=== PATIENT | male | born 1985 | race Caucasian/White ===

== ENCOUNTER 2020-07-18 20:08 | Emergency (ER) | payer OTHER ==
[2020-07-18] MEDS ORDERED: Orphenadrine 100 MG Tab.ER PO STA (21:01)
[2020-07-18] MEDS ORDERED: predniSONE 20 MG Tab PO STA (21:01)
--- NOTE | 2020-07-18 21:16 | EDM.PDOC ---
ED HPI GENERAL MEDICAL PROBLEM - General Chief Complaint: Back Pain or Injury Stated Complaint: LOWER BACK PAIN/RIGHT SIDE Time Seen by Provider: 07/18/20 20:23 Source of Information: Reports: Patient History Limitations: Reports: No Limitations - History of Present Illness INITIAL COMMENTS - FREE TEXT/NARRATIVE: Mr. Caraballo is a very pleasant 34-year-old gentleman who now presents to the ED with progressively worsening lower right back pain radiating down his right lower extremity for the past 2 and half to 3 weeks. He states that he did not suffer any injury to his back, that he simply woke up with it one day. He states that the pain is felt in his lower right back, extending down the lateral aspect of his right buttock, down the lateral aspect of his right thigh, then down his anterior right leg, to his great toe (L4 distribution). He states that he has not identified any modifiers of his symptoms. He denies having any right lower extremity weakness, and he denies any incontinence of bowel or bladder. He states that he has been primarily lying in bed over the past couple of weeks. He states that he was seen by his PCP at the [facility] last week. He states that no tests were done, but that he was prescribed Flexeril and advised to see a chiropractor. He states that he then saw a chiropractor this morning, and that x-rays were done, apparently demonstrating degenerative disc disease. The chiropractor recommended that an MRI be performed, therefore the patient was seen at the [place] walk-in clinic this morning. Again, no tests were p erformed, but the patient was prescribed Welch, and the provider at the walk-in clinic called the [facility] to recommend that an outpatient MRI be scheduled. The patient has not yet heard from the scheduling people. The patient states that neither the Flexeril nor the Welch have helped with his symptoms. He reports that he has been taking aspirin up until 2 days ago. The patient states that he has had similar symptoms in the past, several times over the past few years, however, not this severe. Here in the ED, the patient's initial BP is found to be slightly elevated at 135/99, otherwise, he is hemodynamically stable, afebrile, saturating 99% on room air. Other than his back and right lower extremity pain, the patient denies having a recent fever, chills, sore throat, ear pain, nasal or sinus congestion, cough, dyspnea, chest pain, palpitations, nausea, vomiting, constipation, diarrhea, abdominal pain, urinary symptoms, recent weight gain or weight loss, recent bloody bowel movements or black bowel movements, recent joint aches, headaches, or rashes. The patient's PCP is at the [facility] clinic. He states that he received an influenza vaccine this season. Right Lower Back Pain Score (Numeric/FACES): 9 - Related Data Allergies Allergy/AdvReac Type Severity Reaction Status Date / Time No Known Allergies Allergy Verified 07/18/20 20:22 Home Meds: Home Meds Orphenadrine [Norflex] 1 tab PO Q12H PRN #14 tab.er 07/18/20 [Rx] predniSONE [Prednisone] 1 tab PO QPM #5 tablet 07/18/20 [Rx] Past Medical History - Past Surgical History HEENT Surgical History: Reports: LASIK (bilateral), Oral Surgery (dental extractions) Musculoskeletal Surgical History: Reports: ORIF (left ankle) Social & Family History - Tobacco Use Tobacco Use Status *Q: Never Tobacco User Second Hand Smoke Exposure: No - Alcohol Use Alcohol Use History: Yes Alcohol Use Frequency: Socially - Recreational Drug Use Recreational Drug Use: Yes Drug Use in Last 12 Months: No Recreational Drug Type: Reports: Marijuana/Hashish (last smoked around 2014) - Living Situation & Occupation Living situation: Reports: Single, with Family (Sons) Occupation: Employed ([employer]) ED ROS GENERAL - Review of Systems Review Of Systems: Comprehensive ROS is negative, except as noted in HPI. ED EXAM,LOWER BACK PAIN/INJURY - Physical Exam Exam: See Below Exam Limited By: No Limitations General Appearance: Alert, WD/WN, Mild Distress (appears uncomfortable, stressed) Eye Exam: Bilateral Eye: EOMI, Normal Inspection Ears: Normal External Exam, Hearing Grossly Normal Nose: Normal Inspection Throat/Mouth: Normal Inspection, Normal Lips, Normal Voice, No Airway Compromise Head: Atraumatic, Normocephalic Neck: Normal Inspection, Full Range of Motion Respiratory/Chest: No Respiratory Distress, Lungs Clear, Normal Breath Sounds, No Accessory Muscle Use Cardiovascular: Normal Peripheral Pulses, Regular Rate, Rhythm, No Edema, No Gallop, No JVD, No Murmur, No Rub GI/Abdominal: Normal Bowel Sounds, Soft, Non-Tender, No Organomegaly, No Distention, No Abnormal Bruit, No Mass Back Exam: Other (No visible abnormalities to the patient's lower back, such as swelling, erythema, ecchymosis, or abrasion. No tenderness to the lumbar spinous processes, however, the patient does report some tenderness to palpation over the sacrum. He is more tender over the right SI joint area, with minimal tenderness to the left SI joint area. No tenderness to either buttock. St raight leg raise on the left negative to 90 degrees. Straight leg raise on the right limited to 15 degrees, due to lower back pain, without RLE nuclear symptoms. The patient is able to flex the spine to 10 degrees, and extend the spine to 5 degrees. He is able to tilt the spine to 30 degrees on the left, 5 degrees on the right. He is able to twist the spine to about 5 to 10 degrees bilaterally. Unilateral knee bend is normal bilaterally.) Extremities: Normal Inspection, Non-Tender, No Pedal Edema, Normal Capillary Refill Neurological: Alert, Normal Dorsiflexion, Normal Plantar Flexion, No Motor/Sensory Deficits, Oriented x 3 Psychiatric: Normal Affect Skin Exam: Warm, Dry, Intact, Normal Color, No Rash Course - Vital Signs Last Recorded V/S: Last Vital Signs Temp 36.3 C 07/18/20 20:16 Pulse 95 07/18/20 20:16 Resp 18 07/18/20 20:16 BP 135/99 H 07/18/20 20:16 Pulse Ox 99 07/18/20 20:16 - Orders/Labs/Meds Meds: Medications Discontinued Medications Generic Name Dose Route Start Last Admin Trade Name Alfredoq PRN Reason Stop Dose Admin Orphenadrine Citrate 100 mg 07/18/20 21:01 07/18/20 21:13 Norflex PO 07/18/20 21:02 100 mg ONETIME STA Administration Prednisone 60 mg 07/18/20 21:01 07/18/20 21:13 Prednisone PO 07/18/20 21:02 60 mg ONETIME STA Administration - Re-Assessments/Exams Free Text/Narrative Re-Assessment/Exam: 07/18/20 21:04 As above, the patient developed lower right back pain that radiates down his right lower extremity all the way to his great toe about 2-1/2 to 3 weeks ago. He was [facility] in [place] last week, where he was prescribed Flexeril and recommended to follow-up with a chiropractor. He then saw a chiropractor this morning, where x-rays were performed, with the suggestion of degenerative disc disease. He was then seen at the [place] walk-in clinic this morning, where he was prescribed Welch, and a recommendation was made for an outpatient MRI, which is yet to be scheduled. He states that the Flexeril and Welch have not helped. On examination, all of the patient's pain appears to be due to muscle spasm, with no direct neuropathy, other than the patient reporting radiation of pain down his right lower extremity, which was unable to be reproduced due to muscle spasm in his lower back at even minimal straight leg raise on the right. Because of the patient's young age, I doubt that his symptoms are due to facet arthropathy, rather, it is far more likely that the patient has lumbar disc disease. I explained to the patient that the only way to diagnose that is by MRI, but that, strictly speaking, an MRI is not indicated unless the patient has been symptomatic for 6 weeks, because the vast majority of patients with lumbar disc disease (upwards of 96%) resolve within 6 weeks (an exception to that rule would be if the patient develops motor weakness, as that would indicate cord compression). If the patient is still symptomatic at 6 weeks, an MRI is indicated, and if it confirms lumbar disc disease, then surgery is indicated. The NH, however, may have a different set of guidelines, so he will have to see if they approve an MRI or not. I explained to the patient that there are no medicines or treatments that we can give to encourage a herniated disc to go back in, that all of the treatments that we have are merely to address his symptoms. We discussed the various options, including locally injected steroids, systemic steroids, nonsteroidal anti-inflammatories, muscle relaxants, and physical therapy. None have been shown to be superior to another. For today's purposes, I am recommending that we switch the patient's Flexeril, which is not really a muscle relaxant, to Norflex, and that we start him on prednisone. I explained that he cannot also take an NSAID if he is taking prednisone. I explained that neither of these medicines are going to give him instantaneous relief, but that he should start to have some improvement as early as tomorrow, and should have a noticeable improvement within a couple of days. I also explained that it is very important that the patient stay active, indeed, it is most likely the patient's relative inactivity that has caused his symptoms to get worse over the past couple of weeks. The patient acknowledged that. I recommended that since he already has a note to be off work for the next several days, that he get a membership to the [employer] and begin swimming. If he cannot swim, walking is also good. Departure - Departure Time of Disposition: 21:16 Disposition: Home, Self-Care 01 Condition: Good Clinical Impression: Lumbar radiculopathy, right - Discharge Information *PRESCRIPTION DRUG MONITORING PROGRAM REVIEWED*: Not Applicable *COPY OF PRESCRIPTION DRUG MONITORING REPORT IN PATIENT GEOFF: Not Applicable Prescriptions: Orphenadrine [Norflex] 1 tab PO Q12H PRN #14 tab.er PRN Reason: Muscle Spasm predniSONE [Prednisone] 1 tab PO QPM #5 tablet Instructions: Radicular Pain Referrals: PCP,Not In Area [Primary Care Provider] - Forms: ED Department Discharge Additional Instructions: You were seen in the emergency room for 2 and half weeks of progressively worsening lower right back pain radiating down your right lower extremity. Based on your history and physical examination, your back pain is most likely due to muscle spasms due to irritation of the nerves in your back, most likely due to a herniated intervertebral disc. You have been started on the muscle relaxant Norflex and the steroid prednisone. Prescriptions for both Norflex and prednisone have been sent to the [facility], located at [address] [place] [address]. Take 1 tablet of Norflex every 12 hours, starting tomorrow morning, 07/19/2020, as prescribed. You may continue to take this as long as you are having back pain. Take 1 tablet of prednisone every evening, starting tomorrow evening, 07/19/2020. We recommend that you finish the entire prescription. DO NOT take cyclobenzaprine (Flexeril) or an NSAID, such as aspirin, ibuprofen (Advil, Mortin), or naproxen (Aleve), however, you MAY take over the counter acetaminophen (Tylenol). We recommend that you avoid the hydrocodone (Welch) that was prescribed to you from the walk-in clinic, as one of the side effects of hydrocodone is muscle spasms. As discussed, it is very important that you stay active. Swimming is best, although walking is good, as well. We recommend that you look into getting a short-term membership at the [facility], located adjacent to the hospital, and get into the pool. If any worsening of your symptoms, in particular, if you develop weakness to your right leg or incontinence of bowel or bladder, it is imperative that you go to the nearest emergency room for evaluation. Sepsis Event Note (ED) - Evaluation Sepsis Screening Result: No Definite Risk - Focused Exam Vital Signs: Vital Signs Temp Pulse Resp BP Pulse Ox 07/18/20 20:16 36.3 C 95 18 135/99 H 99
== END 2020-07-18 21:30 | disposition home or self-care (01) ==
LOC: JD.ED 20:08
DX: M54.16 Radiculopathy, lumbar region (principal)
CPT/HCPCS: 99283; A9270; J7512